=== PATIENT | female | born 1980 | race African-American/Black ===

== ENCOUNTER 2021-09-25 00:10 | Inpatient (IN) ==
[2021-09-25] MEDS ORDERED: BUTORPHANOL 2 MG/ML VIAL IV PRN (00:22)
[2021-09-25] MEDS ORDERED: ONDANSETRON 4 MG/2 ML VIAL IV PRN (00:22)
[2021-09-25] MEDS ORDERED: MEPERIDINE 50 MG/1 ML VIAL IV PRN (00:22)
[2021-09-25] MEDS ORDERED: OXYTOCIN/LR 30 UNIT/1,000 ML BAG IV PRN (00:25)
[2021-09-25 00:49] LABS: Basophils % 0.2 % (0.0-0.8); Eosinophils # 0.1 10*3/uL (0.0-0.87); Eosinophils % 1.1 % (0.00-10.9); Hematocrit 36.3 VOL% (35.7-47.0); Hemoglobin 11.6 GM/DL (12.0-16.0); Immature Granulocytes % 0.3 %; Immature Granulocytes Absolute 0.03 #; Lymphocytes % 19.9 % (21.3-54.2); Mean Corpuscular Volume 76.9 FL (87-102); Mean Platelet Volume 12.4 FL (9.6-12.0); Monocytes % 9.6 % (1.7-12.7); Neutrophils % 68.9 % (38.7-73.9); Platelet Count 237 T/CUMM (130-400); Red Blood Count 4.72 MC/CUMM (3.8-5.5); Red Cell Distribution Width 14.7 % (9.3-17.3); White Blood Count 10.2 T/CUMM (4-12)
[2021-09-25 01:12] LABS: Alanine Aminotransferase 12 U/L (13-56); Albumin 2.4 G/DL (3.4-5.0); Alkaline Phosphatase 195 U/L (45-117); Aspartate Amino Transferase 8 U/L (0-37); Bilirubin,Total < 0.39 MG/DL (0.20-1.00); Blood Urea Nitrogen 5 MG/DL (7-18); Calcium 9.3 MG/DL (8.5-10.1); Carbon Dioxide 21 MMOL/L (21-32); Estimated Glom Filtration Rate 115 ML/MIN; Glucose 120 MG/DL (74-106); Osmolality,Calculated 267.1 MOS/KG (273-304); Potassium 3.6 MMOL/L (3.5-5.1); Sodium 135 MMOL/L (136-145); Total Protein 7.3 G/DL (6.4-8.2)
[2021-09-25] MEDS: LACTATED RINGERS 1,000 ML IV PRN ×2 (03:47→08:57)
[2021-09-25] MEDS: OXYTOCIN/LR 20 UNIT/1,000 ML BAG IV PRN ×2 (05:09→17:06)
[2021-09-25] MEDS: AMPICILLIN INJ 2,000 MG in SODIUM CHLORIDE 0.9% 100 ML IV SCH ×2 (05:16→11:03)
[2021-09-25] MEDS ORDERED: FAMOTIDINE 20 MG/2 ML VIAL IV ONE (06:23)
[2021-09-25] MEDS ORDERED: CITRIC ACID/SODIUM CITRATE 30 ML UDCUP PO ONE (06:23)
[2021-09-25] MEDS ORDERED: ceFAZolin 3,000 MG in SYRINGE 1 EACH IV ONE (06:23)
[2021-09-25] MEDS ORDERED: OXYTOCIN 10 UNIT/ML VIAL IM ONE (07:32)
[2021-09-25] MEDS ORDERED: ePHEDrine 50 MG/ML VIAL IV PRN (09:34)
[2021-09-25] MEDS ORDERED: diphenhydrAMINE 50 MG/1 ML VIAL IV PRN ×2 (09:34)
[2021-09-25] MEDS ORDERED: LACTATED RINGERS 1,000 ML IV ONE (09:34)
[2021-09-25] MEDS ORDERED: NALOXONE 0.4 MG/ML VIAL IV PRN (09:34)
[2021-09-25] MEDS ORDERED: LACTATED RINGERS 1,000 ML IV SCH (10:00)
[2021-09-25] MEDS ORDERED: fentaNYL 2 MCG/ROPIV 0.2% EPID 100 ML EPIDURAL SCH (10:00)
[2021-09-25 12:09] LABS: Bilirubin,Urine Negative (Negative); Blood, Urine Moderate mg/dL (Negative); Glucose,Urine (UA) Negative (Negative); Ketones,Urine 5 mg/dL (Negative); Mucus,Urine Occasional /LPF (Occasional); Nitrite,Urine Negative (Negative); Protein,Urine Negative; RBC,Urine <1 /HPF (0-4); Squamous Epithelial Cell,Urine Occasional /HPF (0-10); Urine Appearance CLEAR (Clear); Urine Color Yellow (Yellow); Urine Specific Gravity 1.013 (1.001-1.035); Urine Urobilinogen < 2.0 EU/DL (0.2-1.0)
[2021-09-25] MEDS ORDERED: miSOPROStoL 200 MCG TABLET ONE (13:36)
[2021-09-25] MEDS ORDERED: TRANEXAMIC ACID 1,000 MG/10 ML VIAL ONE (13:36)
[2021-09-25] MEDS ORDERED: METHYLERGONOVINE 0.2 MG/1 ML AMP ONE (13:37)
[2021-09-25] MEDS ORDERED: SODIUM CHLORIDE 0.9% 0 ML IV ONE (13:37)
[2021-09-25] MEDS ORDERED: OXYTOCIN/LR 20 UNIT/1,000 ML BAG IV ONE ×2 (13:37→17:47)
[2021-09-25] MEDS ORDERED: CARBOPROST TROMETHAMINE 250 MCG/ML AMP IM ONE (13:37)
[2021-09-25 14:50] LABS: Cord Venous Blood PCO2 40.8 MMHG
[2021-09-25] MEDS ORDERED: RHO(D) IMMUNE GLOBULIN 300 MCG SYRINGE IM ONE (17:47)
[2021-09-25] MEDS ORDERED: HYDROCORTISONE 2.5% RECTAL CREAM 30 GM TUBE TOP PRN (17:47)
[2021-09-25] MEDS ORDERED: oxyCODONE/ACETAMINOPHEN 5-325 MG TABLET PO PRN ×2 (17:47)
[2021-09-25] MEDS ORDERED: MEASLES/MUMPS/RUBELLA VACCINE 0.5 ML VIAL SUBCUT ONE (17:47)
[2021-09-25] MEDS ORDERED: WITCH HAZEL PADS 100/JAR TOP PRN (17:47)
[2021-09-25] MEDS ORDERED: ACETAMINOPHEN 325 MG TABLET PO PRN (17:47)
[2021-09-25] MEDS ORDERED: BENZOCAINE 20%/MENTHOL 0.5% SPRAY 56 GM CAN TOP PRN (17:47)
[2021-09-25] MEDS ORDERED: LANOLIN 50% CREAM 0.3 OZ TUBE TOP PRN (17:47)
[2021-09-25] MEDS ORDERED: BISACODYL 10 MG SUPP RECTAL PRN (17:47)
[2021-09-25] MEDS ORDERED: DIPH/TET/ACEL PERT BOOSTER VACCINE 0.5 ML VIAL IM ONE (17:47)
[2021-09-25] MEDS: IBUPROFEN 800 MG TABLET PO PRN (19:33)
[2021-09-26] MEDS: DOCUSATE SODIUM 100 MG CAPSULE PO SCH ×3 (00:34→21:52)
[2021-09-26 06:30] LABS: Basophils % 0.3 % (0.0-0.8); Eosinophils # 0.1 10*3/uL (0.0-0.87); Eosinophils % 1.4 % (0.00-10.9); Hematocrit 34.7 VOL% (35.7-47.0); Hemoglobin 10.9 GM/DL (12.0-16.0); Immature Granulocytes % 0.3 %; Immature Granulocytes Absolute 0.03 #; Lymphocytes # 2.1 10*3/uL (1.4-4.0); Lymphocytes % 20.7 % (21.3-54.2); Mean Corpuscular HGB Conc 31.4 GM/DL (32-36); Mean Corpuscular Volume 79.4 FL (87-102); Mean Platelet Volume 12.1 FL (9.6-12.0); Neutrophils % 69.3 % (38.7-73.9); Platelet Count 191 T/CUMM (130-400); Red Blood Count 4.37 MC/CUMM (3.8-5.5); Red Cell Distribution Width 14.8 % (9.3-17.3)
[2021-09-26] MEDS: IBUPROFEN 800 MG TABLET PO PRN (08:31)
[2021-09-27] MEDS: IBUPROFEN 800 MG TABLET PO PRN (00:04)
[2021-09-27 08:59] VITALS: BP 115/69
[2021-09-27] MEDS: DOCUSATE SODIUM 100 MG CAPSULE PO SCH (09:31)
== END 2021-09-27 12:48 | disposition home or self-care (01) | DRG 560 ==
LOC: N.LD 00:10 → N.OB 17:57
PROVIDERS: ADMIT Obstetrics & Gynecology; ATTEND Obstetrics & Gynecology